=== PATIENT | male | born 1990 | race African-American/Black ===

== ENCOUNTER 2016-03-24 23:37 | Emergency (ER) | payer OTHER ==
[2016-03-25] MEDS ORDERED: Lidocaine 1% 20 ML MDV ONE (00:05)
[2016-03-25] MEDS ORDERED: Adacel (T-DAP) 0.5 ML VIAL ONE (00:19)
[2016-03-25] MEDS ORDERED: Bacitracin Zinc 1 Packet ONE (00:34)
== END 2016-03-25 00:38 | disposition home or self-care (01) ==
LOC: NAV ERS 23:37
DX: S41.112A Laceration without foreign body of left upper arm, initial encounter (principal); W45.8XXA Other foreign body or object entering through skin, initial encounter
CPT/HCPCS: 12001; 90471; 90715; J2001

== ENCOUNTER 2016-09-08 16:50 | Emergency (ER) | payer OTHER ==
[2016-09-08] MEDS ORDERED: Lidocaine Viscous Sol 2% 15 ml UD Cup ONE (17:03)
[2016-09-08] MEDS ORDERED: Mag-Al Plus 1200 MG/1200 MG/120 MG/30 ML UDCUP ONE (17:03)
== END 2016-09-08 17:31 | disposition home or self-care (01) ==
LOC: NAV ERS 16:50
DX: K21.0 Gastro-esophageal reflux disease with esophagitis (principal)
CPT/HCPCS: 93005

== ENCOUNTER 2016-12-07 15:48 | Emergency (ER) | payer OTHER, SELFPAY ==
[2016-12-07] MEDS ORDERED: Lidocaine Viscous Sol 2% 15 ml UD Cup ONE (15:55)
[2016-12-07] MEDS ORDERED: Mag-Al Plus 1200 MG/1200 MG/120 MG/30 ML UDCUP ONE (15:55)
== END 2016-12-07 17:12 | disposition home or self-care (01) ==
LOC: NAV ERS 15:48
DX: K21.9 Gastro-esophageal reflux disease without esophagitis (principal)
CPT/HCPCS: 93005

== ENCOUNTER 2021-03-07 15:03 | Emergency (ER) | payer BC, SELFPAY ==
[2021-03-07] MEDS ORDERED: Cephalexin 250 MG CAP ONE (16:06)
== END 2021-03-07 16:10 | disposition home or self-care (01) ==
LOC: NAV ERS 15:03
DX: S80.221A Blister (nonthermal), right knee, initial encounter (principal)
CPT/HCPCS: 99283